=== PATIENT | male | born 1990 | race Caucasian/White ===

== ENCOUNTER 2021-02-01 08:20 | Emergency (ER) | payer SELFPAY ==
--- NOTE | ~2021-02-01 | XR_ITS ---
EXAMINATION: XR chest 2V DATE: 02/01/2021 09:00 INDICATION: Left-sided chest pain TECHNIQUE: PA and lateral views of the chest were obtained. COMPARISON: None FINDINGS: The lungs are clear with no focal airspace opacities, pulmonary edema, pleural effusion or pneumothor ax. The cardiomediastinal silhouette is normal. Mild thoracic dextrocurvature. IMPRESSION: 1. No acute cardiopulmonary disease. Reviewed, dictated and finalized at location A.
[2021-02-01 08:26] VITALS: BP 148/110; PULSE 104; RESP 11; O2SAT 100
--- NOTE | 2021-02-01 08:32 | ECG_ITS ---
Measurements Intervals [place] Rate: 88 P: 73 LA: 177 QRS: 65 QRSD: 101 T: 51 QT: 360 QTc: 437 Interpretive Statements SINUS RHYTHM INCOMPLETE RIGHT BUNDLE BRANCH BLOCK BASELINE ARTIFACT- I, II, III, AVR, AVL, AVF BORDERLINE ECG Electronically Signed On 02-01-2021 8:37:40 CDT by You Paniagua D.O.
--- NOTE | 2021-02-01 08:33 | ED.CHESTPAIN ---
HPI - Chest Pain General Chief Complaint: Chest Pain Stated Complaint: chest pain Time Seen by Provider: 02/01/21 08:32 History of Present Illness HPI narrative: Sudden onset of severe sharp left sided chest pain about 90 minutes ago. Associated with SOB and racing heart rate. Lasted about 1 hour, now very mild soreness in that area. He is sure that he had a heart attack. He has a history of panic attacks and no other medical problems. No pain or swelling in the calfs. Related Data Home Medications Medication Instructions Recorded Confirmed ashwagandha root extract 02/01/21 resveratrol 02/01/21 turmeric 02/01/21 valerian root mg PO 02/01/21 Allergies Allergy/AdvReac Type Severity Reaction Status Date / Time No Known Allergies Allergy Verified 02/01/21 09:25 Review of Systems Review of Systems: All systems reviewed & are unremarkable except as noted in HPI and below Constitutional: Constitutional: Denies fever(s) Eyes: Eyes: Reports no additional eye complaints ENT: Denies sore throat Cardiovascular: Cardiovascular: Reports chest pain, Reports rapid heart rate and Denies radiating jaw, neck or arm pain Respiratory: Respiratory: Reports dyspnea Gastrointestinal: Gastrointestinal: Denies abdominal pain, Denies nausea and Denies vomiting Genitourinary: Genitourinary: Reports no additional male genitourinary complaints Musculoskeletal: Musculoskeletal: Denies back pain Neurologic: Denies confusion, Reports dizziness, Denies syncope and Denies weakness Psychiatric: Psychiatric: Reports anxiety Allergic/Immunologic: Allergic/Immunologic: Denies lip swelling, Denies throat swelling and Denies tongue swelling [facility] Past Medical History Medical History (Updated 02/07/21 @ 11:47 by Raheem Ballard MD) Anxiety Exam Const: General: healthy appearing, no acute distress and alert Orientation/consciousness: patient oriented x3 HENMT: Head: normal to inspection Neck: Neck: normal visual inspection Chest: Chest palpation & inspection: tenderness pectoral muscle on the left Resp: Effort & Inspection: normal respiratory effort Auscultation: clear to auscultation bilaterally, no rales, no rhonchi and no wheezes Cardio: Jugular venous distension: no JVD Rate: regular rate and tachycardic Heart sounds: no murmurs GI: Inspection: non-distended GI Palp: Yes Soft to palpation and No Tenderness to palpation present (GI) Skin: General skin exam: normal color Neuro: General: patient oriented x3, moves all extremities, no focal motor deficits and CN's II-XI intact bilaterally Other: Pressured speech Extrem: General: no edema Psych: Appearance: well kempt Affect: Anxious affect present Course Vital Signs Vital signs: Vital Signs Pulse Rate 104 H 02/01/21 08:26 Respiratory Rate 11 L 02/01/21 08:26 Blood Pressure 148/110 H 02/01/21 08:26 Pulse Oximetry 100 02/01/21 08:26 Pulse Rate 99 02/01/21 12:03 Respiratory Rate 13 02/01/21 12:03 Blood Pressure 152/91 H 02/01/21 12:03 Pulse Oximetry 100 02/01/21 12:03 MDM - Chest Pain MDM Narrative Medical decision making narrative: Atypical chest pain. No risk factors for DVT/PE. History of anxiety and very anxious appearing on exam. laboratory testing benign. No acute findings on EKG Differential Diagnosis Differential diagnosis: Likely pneumothorax, atypical chest pain and costochondritis Medical Records Data Attestation: I reviewed the patient's medical records. Lab Data Attestation: I reviewed the patient's lab results. Result diagrams: 02/01/21 08:39 02/01/21 08:39 Labs: Lab Results 02/01/21 02/01/21 02/01/21 Range/Units 08:39 08:39 08:39 WBC 7.3 (4.5-10.0) K/mm3 RBC 4.95 (4.6-6.20) M/mm3 Hgb 15.1 (14.0-18.0) g/dL Hct 42.7 (42.0-52.0) % MCV 86.3 (80-100) fl MCH 30.5 (26-34) pg MCHC 35.4 (32-36) g/dl RDW 11.6 (11.5-14.5) % Plt Count
[2021-02-01 08:37] VITALS: PULSE 85
[2021-02-01 08:46] LABS: Basophils Percent Auto 0.4 % (0.2-1.2); Eosinophils Percent Auto 0.5 % (0-4.4); Hematocrit 42.7 % (42.0-52.0); Hemoglobin 15.1 g/dL (14.0-18.0); Immature Granulocyte Absolute 0.02 K/mm3 (0.00-0.031); Immature Granulocyte Percent A 0.3 % (0-0.5); Lymphocytes Absolute Auto 0.63 K/mm3 (0.9-3.2); Lymphocytes Percent Auto 8.6 % (18.3-44.2); Mean Corpuscular HGB Conc 35.4 g/dl (32-36); Mean Corpuscular Hemoglobin 30.5 pg (26-34); Mean Corpuscular Volume 86.3 fl (80-100); Mean Platelet Volume 10.4 fl (7.4-10.4); Monocytes Absolute Auto 0.7 K/mm3 (0.1-0.6); Monocytes Percent Auto 8.9 % (2.6-8.5); Neutrophils Absolute Auto 5.9 K/mm3 (1.3-6.7); Neutrophils Percent Auto 81.3 % (45.5-73.1); Platelet Count Result 227 k/mm3 (150-375); Red Blood Count 4.95 M/mm3 (4.6-6.20); Red Cell Distribution Width 11.6 % (11.5-14.5); White Blood Count 7.3 K/mm3 (4.5-10.0)
[2021-02-01 08:56] LABS: Anion Gap 9 mmol/L (8-16); Blood Urea Nitrogen 6 mg/dL (9-20); Carbon Dioxide 26 mmol/L (22-30); Chloride 96 mmol/L (98-107); Estimated CRCL calculation 131 ml/min; Estimated Glomerular Filt Rate > 60; Glucose 103 mg/dL (75-110); Potassium 3.6 mmol/L (3.4-5.0); Sodium 131 mmol/L (137-145)
[2021-02-01 08:57] LABS: INR 0.9; Partial Thromboplastin Time 24.9 SECONDS (22.3-36.8); Prothrombin Time 12.6 Seconds (11.1-14.7)
[2021-02-01 09:07] LABS: Troponin I < 0.012 ng/mL (0.000-0.034)
[2021-02-01 09:16] VITALS: BP 155/96; PULSE 97; RESP 12; O2SAT 98
[2021-02-01 11:25] VITALS: BP 151/91; PULSE 94; RESP 20; O2SAT 100
[2021-02-01 11:56] LABS: Troponin I < 0.012 ng/mL (0.000-0.034)
[2021-02-01 12:03] VITALS: BP 152/91; PULSE 99; RESP 13; O2SAT 100
== END 2021-02-01 12:08 | disposition home or self-care (01) ==
PROVIDERS: Emergency Provider Emergency Medicine
DX: R07.89 Other chest pain (principal); I45.10 Unspecified right bundle-branch block
CPT/HCPCS: 36415; 71046; 80048; 84484; 85025; 85610; 85730; 93005; 99284

== ENCOUNTER 2021-03-19 12:43 | Emergency (ER) | payer SELFPAY ==
[2021-03-19] VITALS (23 sets, daily range): BP systolic 106–124; BP diastolic 54–91; PULSE 91–120; RESP 10–22; TEMP 36.8; O2SAT 97–100
--- NOTE | 2021-03-19 13:14 | ECG_ITS ---
Measurements Intervals [place] Rate: 91 P: 60 ND: 161 QRS: 43 QRSD: 110 T: 39 QT: 393 QTc: 484 Interpretive Statements SINUS RHYTHM INCOMPLETE RIGHT BUNDLE BRANCH BLOCK ST ELEVATION IN ANTEROLAT/INF LEADS- PROBABLY EARLY REPOLARIZATION ABNORMALITY BASELINE ARTIFACT- II, III, AVR, AVF, V3-V6 BORDERLINE ECG Electronically Signed On 03-19-2021 19:10:39 CDT by You Paniagua D.O.
[2021-03-19 13:29] LABS: Basophils Percent Auto 0.1 % (0.2-1.2); Hematocrit 42.7 % (42.0-52.0); Hemoglobin 15.4 g/dL (14.0-18.0); Immature Granulocyte Absolute 0.04 K/mm3 (0.00-0.031); Immature Granulocyte Percent A 0.4 % (0-0.5); Immature Platelet Fraction Pct 5.6 % (0.9-11.2); Lymphocytes Absolute Auto 0.44 K/mm3 (0.9-3.2); Lymphocytes Percent Auto 4.9 % (18.3-44.2); Mean Corpuscular HGB Conc 36.1 g/dl (32-36); Mean Corpuscular Hemoglobin 30.3 pg (26-34); Mean Corpuscular Volume 84.1 fl (80-100); Mean Platelet Volume 10.1 fl (7.4-10.4); Monocytes Absolute Auto 0.4 K/mm3 (0.1-0.6); Monocytes Percent Auto 4.8 % (2.6-8.5); Neutrophils Absolute Auto 8.1 K/mm3 (1.3-6.7); Neutrophils Percent Auto 89.8 % (45.5-73.1); Platelet Count Result 116 k/mm3 (150-375); Red Blood Count 5.08 M/mm3 (4.6-6.20); Red Cell Distribution Width 12.2 % (11.5-14.5)
--- NOTE | 2021-03-19 13:30 | PC.NURSE ---
Addendum entered by Bobbi Bridges RN 03/19/21 14:20: Pt's skin noted to be yellow, pt states it has not been like that before and states what is it, jaundice? Original Note: s/p trying to off myself for the past three days , states two hours prior to calling medics took 4 Dayquils and about a pint of vodka . Had vomited multiple times and called for help. States his past suicide attempt was 2017 I took the sleeping Tylenols and I was in a coma for a few days, then I was in a psych hospital for about a month . Pt awake, bloodshot eyes, disheveled with dirt noted in nails, non-labored respirations, no active vomiting. Pt has paranoid-like behavior ( I just need a glass of water, this is just like my father who of cancer, his trach was bone dry ), redirectable
[2021-03-19 13:38] LABS: Acetaminophen 18 ug/mL (10-30); Ethanol 176 mg/dL (<10); Salicylate < 1.0 mg/dL (2-20)
[2021-03-19 13:48] LABS: Albumin Level 4.3 g/dL (3.5-5.1); Alkaline Phosphatase 111 U/L (38-126); Anion Gap 13 mmol/L (8-16); Bilirubin Direct 0.3 mg/dL (0-0.3); Bilirubin,Total 6.1 mg/dL (0.2-1.3); Blood Urea Nitrogen 8 mg/dL (9-20); Calcium 8.7 mg/dL (8.4-10.2); Carbon Dioxide 24 mmol/L (22-30); Chloride 98 mmol/L (98-107); Estimated CRCL calculation 119 ml/min; Estimated Glomerular Filt Rate > 60; Glucose 136 mg/dL (75-110); Potassium 3.8 mmol/L (3.4-5.0); Sodium 135 mmol/L (137-145)
[2021-03-19] MEDS: SODIUM CHLORIDE 0.9% IV 1,000 ML 999 ML (13:50)
--- NOTE | 2021-03-19 14:00 | PC.NURSE ---
Clarified information with pt: over past 2 to 3 days took about 30 generic [facility] Tylenols , when he woke up and was still here this morning then took additional Dayquils x4 packages.
[2021-03-19 14:08] LABS: Thyroid Stimulating Hormone 0.717 uIU/mL (0.465-4.680)
[2021-03-19 14:54] LABS: Alanine Aminotransferase > 5000 U/L (4-50); Aspartate Amino Transferase > 7500 U/L (17-59)
--- NOTE | 2021-03-19 14:55 | PC.NURSE ---
Spoke with Rosanna at [place] [facility], recommend starting Tylenol antidote, Dr. Sarmiento aware and orders in place. Pt states I don't have much time, I feel like morphine will help me pass in a normal way
[2021-03-19 14:58] LABS: Add Urine Microscopic? YES; Appearance Urine Cloudy (Clear); Bacteria Urine Trace /hpf; Bilirubin Urine Negative (Negative); Blood Urine 1+ (Negative); Color Urine Amber (Yellow); Glucose Urine UA Negative (Negative); Ketones Urine Negative (Negative); Leukocyte Esterase Ur Negative LEU/UL (Negative); Mucus Urine Few /lpf; Nitrate Urine Negative (Negative); Protein Urine 2+ mg/dL (Negative); RBC Urine 0-2 /hpf (0-2); Specific Grav Ur 1.013 (1.001-1.035); Squamous Epithelial Cell Urine Rare /hpf (Few); Urobilinogen Urine Negative mg/dL (<2.0); WBC Urine 0-3 /hpf
[2021-03-19 15:04] LABS: INR 2.9; Prothrombin Time 31.2 Seconds (11.1-14.7)
--- NOTE | 2021-03-19 15:34 | PC.NURSE ---
Spoke with Rosanna at [facility] to extend 2nd antedote IV bag to another 8-12 hours and to recheck liver enzymes 2 hours before the 3rd antedote bag infused.
[2021-03-19 15:36] LABS: Amphetamine Screen Urine Negative (Negative); Barbiturate Screen Urine Negative (Negative); Benzodiazepines Screen Urine Negative (Negative); Cannabinoid Screen Urine Negative (Negative); Cocaine Screen Urine Negative (Negative); Methadone Screen Urine Negative (Negative); Opiate Screen Urine Negative (Negative); Phencyclidine Screen Urine Negative (Negative)
--- NOTE | 2021-03-19 15:40 | ED.GENADULT ---
HPI - General Adult General Chief complaint: Overdose Stated complaint: Took 4 dayquill to hurt self Time Seen by Provider: 03/19/21 12:53 History of Present Illness HPI narrative: Patient is a 30-year-old male who presents the ER after attempting to kill himself. Patient reports on March 17 he took approximately 30 tablets of acetaminophen and attempt to take his own life. He combined ibuprofen with this. He was also drinking alcohol. Today he took 4 more tabs of acetaminophen and drinks vodka as well. He has hopelessness and says he has no family or friends and that there is no reason to be alive. Last suicide attempt was in 2017 when he took some pills as well. Patient is reporting no chest pain or chest pressure. No abdominal pain/nausea/vomiting. He has noted that his skin has become slightly discolored. Related Data Home Medications Medication Instructions Recorded Confirmed ashwagandha root extract 02/01/21 resveratrol 02/01/21 turmeric 02/01/21 valerian root mg PO 02/01/21 Allergies Allergy/AdvReac Type Severity Reaction Status Date / Time No Known Allergies Allergy Verified 02/01/21 09:25 Review of Systems Review of Systems: All systems reviewed & are unremarkable except as noted in HPI and below Constitutional: Constitutional: Denies chills, Denies fever(s) and Denies weakness Cardiovascular: Cardiovascular: Denies chest pain, Denies rapid heart rate and Denies radiating jaw, neck or arm pain Respiratory: Respiratory: Denies cough and Denies dyspnea Gastrointestinal: Gastrointestinal: Denies abdominal pain, Denies diarrhea, Denies nausea and Denies vomiting Integumentary/Breasts: Skin/Breast: Denies pruritus Comments: Yellowing of skin Psychiatric: Psychiatric: Reports depression, Denies homicidal ideation and Reports suicidal ideation PMFSH Past Medical History Medical History (Updated 03/20/21 @ 00:00 by Background Daemon) Anxiety Depression Surgical History Surgical History (Updated 03/19/21 @ 15:42 by James Sarmiento MD) No pertinent past surgical history Social History Social History (Updated 03/19/21 @ 15:42 by James Sarmiento MD) Substance use: current Substance use type: does not use Exam Narrative: Exam Narrative: GENERAL: ill-appearing, well-nourished, and in no acute distress. HEAD: Normocephalic, atraumatic. EYES: PERRL and EOMI. scleral icterus noted ENT: Mucous membranes moist. CHEST: Clear to auscultation. No respiratory distress. HEART: Tachycardic and regular. Normal peripheral pulses. ABDOMEN: Soft, nontender, nondistended. EXTREMITIES: Normal range of motion. No edema. SKIN: Warm, dry, jaundiced. NEURO: Alert and oriented x3. PSYCH: Depressed mood and reports suicidality. No delirium or AI/. Course Reevaluation(s) Reevaluation #1: Patient informed of the seriousness of his condition. I have been in contact with Dr. Gonzalez with the liver team who would like the patient at [facility] have also spoken with Dr. Barron the MICU fellow on-call who has accepted the patient on behalf of Dr. Camara. Date: 03/19/21 Time: 16:21 Reevaluation #2: Poison control was called back. They decided the patient can have the second bag at the original dosage and timeframe of 4 hours. This has been communicated to the nurse. We are awaiting placement at [facility]. Date: 03/19/21 Time: 17:17 Vital Signs Vital signs: Vital Signs Temperature 98.3 F 03/19/21 12:52 Pulse Rate 115 H 03/19/21 12:52 Respiratory Rate 16 03/19/21 12:52 Blood Pressure 113/69 03/19/21 12:52 Pulse Oximetry 100 03/19/21 12:52 Temperature 98.3 F 03/19/21 12:52 Pulse Rate 98 03/19/21 22:25 Respiratory Rate 18 03/19/21 22:25 Blood Pressure 118/89 03/19/21 22:25 Pulse Oximetry 100 03/19/21 22:25 Medical Decision Making Vital Signs Vital Signs: Vital Signs Temperature 98.3 F 03/19/21 12:52 Pulse Rate 115 H 03/19/21
[2021-03-19] MEDS: ONDANSETRON INJ 4 MG/2 ML VIAL IV PUSH (16:26)
[2021-03-19 16:29] LABS: Ammonia < 9 umol/L (9-30)
--- NOTE | 2021-03-19 17:17 | PC.NURSE ---
Per [place] poison control pt should be receiving acetylcysteine at a rate of 12.5mg/kg/hr with monitoring of transaminases and PT/INR
--- NOTE | 2021-03-19 17:36 | PC.NURSE ---
Pt sitting up on cart, stating I feel like it's time, I'm half right now, everything is dimming. Denies AH/VH, speaking full clear sentences, non-labored respirations I feel like it's my breathing that's keeping me going , 1:1 sitter monitoring ongoing
--- NOTE | 2021-03-19 18:31 | PC.NURSE ---
2nd bag of Tylenol antidote infusing, pt no longer vomiting. Pt repositioned on cart, warm blankets provided. ST on monitor, pt intermittently anxious and sits up on bed. Pt states this isn't a fun way to go
--- NOTE | 2021-03-19 20:06 | PC.NURSE ---
Pt calm and cooperative. Pt requesting something for anxiety . No vomiting. No new s/s. 1:1 observation continues.
--- NOTE | 2021-03-19 21:25 | PC.NURSE ---
called [facility] to transport patient. ETA [phone]
[2021-03-19] MEDS: ACETYLCYSTEINE IVPB (21:29)
[2021-03-19] MEDS: DEXTROSE 5% IVPB (21:29)
--- NOTE | 2021-03-19 21:43 | PC.NURSE ---
Report called to Kill[facility]ANNA. Pt going to room 422.
[2021-03-19] MEDS: LORazepam INJ (*CRX) 2 MG/ML VIAL 1 MG IV PUSH (22:10)
== END 2021-03-19 22:25 | disposition short-term general hospital (02) ==
PROVIDERS: Emergency Provider Emergency Medicine
DX: T39.1X2A Poisoning by 4-Aminophenol derivatives, intentional self-harm, initial encounter (principal); F41.9 Anxiety disorder, unspecified; F32.9 Major depressive disorder, single episode, unspecified
CPT/HCPCS: 36415; 80048; 80076; 80307; 81001; 82140; 84443; 85025; 85055; 85610; 85730; 93005; 96361; 96365; 96366; 96375; 99285; J0132; J2060; J2405; J7030; J7060; J7070